=== PATIENT | female | born 1975 | race Caucasian/White ===

== ENCOUNTER 2024-11-08 09:54 | Outpatient (OUT) | payer OTHER, SELFPAY ==
--- OUTSIDE RECORDS SUMMARY | 2024-03-11 07:15 | XMS_ITS | Continuity of Care Document ---
Author Organization [employer] [facility] Address [address] [place] [address] [place] [address] Phone Care Team Providers Care Bill Clerk Name Role Phone Sylvie ALVAREZ, Rafat Unavailable Unavailable Procedures Procedure Date POSTOP FOLLOW-UP VISIT Sleeve Gastrectomy LAP SLEEVE GASTRECTOMY OFFICE/OUTPATIENT VISIT, [facility] PSYCL TST EVAL PHYS/QHP PSYCL/NRPSYC TST PHY/QHP PSYCL/NRPSYC TST PHY/QHP OFFICE/OUTPATIENT VISIT, [facility] Advance Directives Directive Yes / No Effective Date File Name No Information Encounters Encounter Description Practice Location Reason(s) For Visit Diagnoses Date Provider Providers Copied on Encounter [place] [employer] [facility], [address] [place] [address], [id number], [place] tel:[phone] [facility] No Information Sylvie Douglass. [address] [place] [address], [id number], [place]. tel:[phone] Referring Provider: Rafat Winchester, [address] [place] [address], [address]. tel:[phone] [employer] [facility], [address] [place] [address] [place], [id number], [place] tel:[phone] [facility] No Information Parmjit Bill. [address] [place] [address] [address], [place], [place], [id number], [place]. tel:[phone] Referring Provider: Landy Parnell, [address] [facility] [address], [place], [address]. tel:[phone] [place] [employer] [facility], [address] [place] [address] [address], [place], [place], [id number], [place] tel:[phone] [facility] No Information Sylvie Douglass. [address] [facility] [address], [place], [place], [id number], [place]. tel:[phone] Referring Provider: Rafat Winchester, [address] [place] [address] [address] [facility], [place], [address]. tel:[phone] OFFICE/OUTPATI ENT VISIT, [facility] Emb[employer]ded Chat [facility], [address] [place] [address] [address], [place], [place], [id number], [place] tel:[phone] [facility] No Information Sylvie Douglass. [address] [facility] [address], [place], [place], [id number], [place]. tel:[phone] Referring Provider: Rafat Winchester, [address] [place] [address] [address], [place], [address]. tel:[phone] [place] [employer] [facility], [address] [place] [address] [address], [place], [id number], [place] tel:[phone] [facility] No Information Gilberto Keita. [address] [facility] [address], [place], [place], [id number], [place]. tel:[phone] Referring Provider: Neela Macias, [address] [place] [address] [address], [place], [address]. tel:[phone] OFFICE/OUTPATI ENT VISIT, [facility] [employer]ded [facility], [address] [place] [address] [address], [place], [id number], [place] tel:[phone] [facility] No Information Sylvie Douglass. [address] [facility] [address], [place], [place], [id number], . tel:[phone] Referring Provider: Rafat Winchester, [address] [facility] [address], [place], [address]. tel:[phone] Family History Family Member Type Diagnosis Age At Onset No Information Payers Payer name Insurance type Covered green party ID Authorcapricea paulinecarlitos(s) [employer] [place] Medicaid CI [id number] Social History Type Description Quantity Date Captured Comments Sex Female Smoking Status No Information Chief Complaint And Reason For Visit No Information Reason For Referral Reason For Referral No Information History Of Present Illness Encounter Date Complaint History Of Prese nt Illness No Information Functional Status Date Functional Assessmen t No Information Instructions Date Instruction Additional Infor mation No Information Assessments Type Assessment Date No Information Patient Care Teams Name Effective Dates (start - stop) Status Members No Information
--- OUTSIDE RECORDS SUMMARY | 2024-05-03 05:15 | XMS_ITS ---
Author Organization [facility] es Address [address] [place] [address] Care Team Providers Care Nurse Midwife/Clinical Instructor Name Role Phone Tammi Murphy Primary Care Provider [phone] Stevan Vero Santiago Unavailable [phone] REASON FOR VISIT 3 month DO NOT CHANGE TO TELE Encounters Encounter Location Date Provider Diagnosis [facility] [address] [facility] [place] [address] 05/03/2024 Tammi Murphy Plan Of Treatment Next Appt Details Provider Name:Tammi garcía, 11/11/2024 07:30:00 AM, [address], [address], Provider Name:Sergei Feng, 1 03/29/2024 04:30:00 PM, [address], [address], Provider Name:Sergei Feng, 1 04/07/2024 03:30:00 PM, [address] [place], [address], Provider Name:Sergei Feng, 1 04/10/2024 11:15:00 AM, [address], [address], Progress Notes * SHALONDA GREENBERGDOB:[birth year] (49 yo F)Acc No.[id number]:05/03/2024 Behavioral Health Patient: SHALONDA MASON Appointment Provider: C RONNIE WEEMS :1975 A ge:49 Y S ex:Female Date:05/03/2024 Address:[address] [place], [place] [address], [id number] Subjective: * Chief Complaints: * 1 . 3 month DO NOT CHANGE TO TELE. * Medical History: Objective: * Vitals: Assessment: Plan: * Treatment: * Images: * Electronic signature of MAICO Page i on 11/08/2024 at 09:59 AM EDT Sign off status: Pending * Appointment Provider: RONNIE BERG Date: 0 05/03/2024 Generated for Subhash drake/Manda/Colin on: 0 11/08/2024 09:59 AM EDT
--- OUTSIDE RECORDS SUMMARY | 2024-05-28 04:30 | XMS_ITS ---
Author Organization [facility] es Address [address] [place] [address] Care Team Providers Care Behavioral Health Technician Name Role Phone Tammi Murphy Primary Care Provider [phone] Stevan Vero Santiago Unavailable [phone] REASON FOR VISIT r/s from 3-10 Encounters Encounter Location Date Provider Diagnosis [facility] [address] [facility] [place] [address] 05/28/2024 Tammi Murphy Plan Of Treatment Next Appt Details Provider Name:Tammi garcía, 11/11/2024 07:30:00 AM, [address], [address], Provider Name:Sergei Feng, 1 03/29/2024 04:30:00 PM, [address] [place], [address], Provider Name:Sergei Feng, 1 04/07/2024 03:30:00 PM, [address] [place], [address], Provider Name:Sergei Feng, 1 04/10/2024 11:15:00 AM, [address] [place], [address], Progress Notes * SHALONDA GREENBERGDOB:[birth year] (49 yo F)Acc No.[id number]:05/28/2024 Behavioral Health Patient: SHALONDA MASON Appointment Provider: C RONNIE WEEMS :1975 A ge:49 Y S ex:Female Date:05/28/2024 Address:[address] [place], [place] [address], [id number] Subjective: * Chief Complaints: * 1 . R/s from 3-10. * Medical History: Objective: * Vitals: Assessment: Plan: * Treatment: * Images: * Electronic signature of MAICO Page i on 11/08/2024 at 09:59 AM EDT Sign off status: Pending * Appointment Provider: RONNIE BERG Date: 0 05/28/2024 Generated for Subhash drake/Manda/Colin on: 0 11/08/2024 09:59 AM EDT
--- OUTSIDE RECORDS SUMMARY | 2024-11-08 09:59 | XMS_ITS | Clinical Summary ---
Author Organization [facility] Address [address] [place] [address] Phone Care Team Providers Care Linux System Administrator Name Role Phone Unavailable Primary Care Provider Unavailabl e Encounters Date Type Department Care Team Description 10/07/2024 Orders Only [facility] [address] [place] [place] [address] Ruy Padilla DO from Last 3 Months Social History Tobacco Use Types Packs/Day Years Used Date Smoking Tobacco: Never Assessed Comments Unknown Sex and Gender Information Value Date Recorded Sex Assigned at Not on file Legal Sex Female 9:36 AM EST Gender Identity Not on file Sexual Orientation Not on file Plan of Treatment Not on file Procedures Procedure Name Priority Date/Time Associated Diagnosis Comments [facility] UA WITH CULT RFLX Routine 10/07/2024 9:01 AM EDT [facility] CBC W/ AUTO DIFF Routine 10/07/2024 7:09 AM EDT [facility] EGFR Routine 10/07/2024 7:09 AM EDT [facility] H[facility] LIPASE LEVEL Routine 10/07/2024 7:09 AM EDT [facility] HEP FUNC PANEL Routine 10/07/2024 7:09 AM EDT [facility] BMP Routine 10/07/2024 7:09 AM EDT from Last 3 Months Results * (ABNORMAL) [facility] UA WITH CULT RFLX (10/07/2024 9:01 AM EDT) [facility] UA Spec Desc Clean Catch [facility] NON-[facility] HIE UA Color Yellow Yellow [facility] Comment:Microscopic readings are only performed on those samples that meet specific criteria set forth by [facility]. [facility] HIE UA Clarity Clear Clear [facility]IE UA Spec Grav >1.050 1.005 - 1.030 [facility] H[facility] UA pH 6.0 5.0 - 9.0 [facility] HIE UA Protein 1+(A) Negative mg/dL [facility] HIE UA Glucose Negative Negative mg/dL [facility] UA Ketones 2+(A) Negative mg/dL [facility] UA Bili Negative Negative mg/dL [facility] UA Blood Trace(A) Negative [facility] UA Nitrite Negative Negative mg/dL [facility] UA Urobilinogen Negative Negative mg/dL [facility] UA Leuk Est Negative Negative [facility] H[facility] UA WBC 0-5 0 - 5 CD:[id number] [facility] HIE UA RBC 4-20(A) 0 - 3 CD:[id number] 63 [facility] NON- HIE UA Squam Epithelial 3-4 CD:[id number] 63 [facility] UA MUCOUS 3+(A) Negative [facility] Urine 10/07/2024 9 :01 AM EDT us Ruy Padilla DO LAB BLOOD ORDERABLES Final Resu lt [facility] [address] [place] [address], [place] * (ABNORMAL) [facility] CBC w/ Auto Diff (10/07/2024 7:09 AM EDT) [facility] WBC 16.4(H) 4.0 - 11.0 E9/L [facility] H[facility] RBC 5.5 4.3 - 5.9 E12/L [facility] H[facility] HGB 18.0(H) 12.0 - 16.0 gm/dL [facility] H[facility] HCT 50.4(H) 34.0 - 46.0 % [facility] RDW 13.8 10.9 - 14.2 % [facility] H[facility] MCH 32.5 27.0 - 34.0 pg [facility] HIE MCHC 35.7 31.4 - 36.0 gm/dL [facility] H[facility] MCV 90.9 80.0 - 100.0 fL [facility] H[facility] MPV 7.3 6.4 - 10.8 fL [facility] H[facility] PLATELET 331.0 150.0 - 500.0 E9/L [facility] NEUTRO AUTO 95.4(H) 36.0 - 75.0 % [facility] H[facility] LYMPH AUTO 2.4(L) 14.0 - 50.0 % [facility] MONO AUTO 2.0(L) 4.0 - 14.0 % [facility] EOS AUTO 0.0 0.0 - 8.0 % [facility] BASOPHIL AUTO 0.2 0.0 - 2.0 % [facility] NEUTRO ABSOLUTE 15.6(H) 2.0 - 7.5 E9/L [facility] LYMPH ABSOLUTE 0.4(L) 1.0 - 4.0 E9/L [facility] MONO ABSOLUTE 0.3 0.2 - 1.0 E9/L [facility] EOS ABSOLUTE 0.0 0.0 - 0.5 E9/L [facility] BASOPHIL ABSOLUTE 0.0 0.0 - 0.2 E9/L [facility]- Blood 10/07/2024 7 :09 AM EDT us Ruy Padilla DO LAB BLOOD ORDERABLES Final Resu lt Performing Organization Address [facility] Co de Phone Number [facility] [address] [place] [address], [place] * (ABNORMAL) [facility] BMP (10/07/2024 7:09 AM EDT) [facility] GLUCOSE LVL 157 55 - 199 mg/dL [facility] H[facility] BUN 13 5 - 21 mg/dL [facility] H[facility] CREATININE 0.8 0.5 - 1.3 mg/dL [facility] BUN/CREAT RATIO 16 10 - 20 No Units [facility] H[facility] CALCIUM LVL 10.3 8.9 - 11.1 mg/dL [facility] H[facility] SODIUM LVL 135 135 - 145 mmol/L [facility] POTASSIUM LVL 4.3 3.5 - 5.3 mmol/L [facility] HIE CHLORIDE 96(L) 101 - 111 mmol/L [facility] H[facility] CO2 28 21 - 31 mmol/L [facility] AGAP 15 6 - 16 mEq/L [facility]- Blood 10/07/2024 7 :09 AM EDT us Ruy Padilla DO LAB BLOOD ORDERABLES Final Resu lt Performing Organization Address City/[facility]/ZIP Co de Phone Number [facility] [address] [place] [address], [place] * (ABNORMAL) [facility] Lipase Level (10/07/2024 7:09 AM EDT) [facility] LIPASE LVL 10(L) 13 - 58 unit/L [facility]- Blood 10/07/2024 7 :09 AM EDT us Ruy Padilla DO LAB BLOOD ORDERABLES Final Resu lt [facility] [address] [place] [address], [place] * (ABNORMAL) [facility] H[facility] Hep Func Panel (10/07/2024 7:09 AM EDT) [facility] H[facility] ALT 15 6 - 46 Int._Unit/ L [facility] HIE AST 22 5 - 43 Int._Unit/ L [facility] H[facility] ALBUMIN LVL 4.9 3.3 - 5.0 gm/dL [facility] H[facility] GLOBULIN 3.6 1.4 - 4.0 gm/dL [facility] H[facility] A/G RATIO 1.4 1.1 - 2.2 [facility] H[facility] ALK PHOS 93 21 - 98 Int._Unit/ L [facility] BILI DIRECT 0.2 0.0 - 0.4 mg/dL [facility] BILI INDIRECT 1.2(H) 0.1 - 0.9 mg/dL [facility] H[facility] BILI TOTAL 1.4(H) 0.0 - 1.1 mg/dL [facility] H[facility] TOTAL PROTEIN 8.5(H) 6.0 - 7.8 gm/dL [facility]- Blood 10/07/2024 7 :09 AM EDT us Ruy Padilla DO LAB BLOOD ORDERABLES Final Resu lt [facility] [address] [place] [address], [place] * [facility] HIE eGFR (10/07/2024 7:09 AM EDT) [facility] H[facility] EGFR 90 >=59 mL/min/1.7 3 m2 [facility]- Blood 10/07/2024 7 :09 AM EDT us Ruy Padilla DO LAB BLOOD ORDERABLES Final Resu lt [facility] [address] [place] [address], [place] from Last 3 Months
--- OUTSIDE RECORDS SUMMARY | 2024-11-08 09:59 | XMS_ITS | Clinical Summary ---
Author Organization [employer] Address [id number] [address] [place] [address] Care Team Providers Care Crepe Box Tender Name Role Phone No Pcp, No Pcp Primary Care Provider Unavailabl e Allergies Active Allergy Reactions Criticality Noted Date Comments Sulfa (Sulfonamide Antibiotics) 08/2016 Medications PNV NO.95/FERROUS FUM/FOLIC AC ( ORAL) Take by mouth. Active levothyroxine (SYNTHROID) 50 MCG tablet Take 75 mcg by mouth daily. Active citalopram (CeleXA) 20 mg tablet Take 20 mg by mouth daily. Active ferrous gluconate (FERGON) 324 mg tabletIndications :Monochorionic diamniotic twin gestation in first trimester,Elderly multigravida in first trimester,Essenti al hypertension Take 1 tablet (324 mg total) by mouth daily with breakfast. 60 tablet 3 09/05/2016 Active loratadine (CLARITIN) 10 mg tablet Take 10 mg by mouth daily. Active fluticasone-salme terol (ADVAIR) 100-50 mcg/dose DISKUS Inhale 1 puff daily. Active albuterol (PROVENTIL HFA;VENTOLIN HFA) 90 mcg/actuation inhaler Inhale 2 puffs every 6 (six) hours as needed for wheezing. Active Active Problems Problem Noted Date Diagnosed Date care following delivery 06/2016 Hypothyroidism (acquired) 01/28/2017 Chronic hypertension 01/28/2017 Asthma 01/28/2017 Placenta previa 01/27/2017 Placenta previa antepartum in second trimester 0 11/01/2016 History of 11/01/2016 Monochorionic diamniotic twin gestation in secon d trimester 09/05/2016 Elderly multigravida in second trimester 017 Hypertension affecting in second trime ster 09/05/2016 Immunizations No known immunizations Family History Medical History Relation Name Comments Asthma Brother Alcohol abuse Father Arthritis Father Cancer Maternal Grandfather Diabetes Maternal Grandfather Hypertension Maternal Grandfather Asthma Maternal Grandmother Blood Clots Maternal Grandmother Cancer Maternal Grandmother Depression Maternal Grandmother Asthma Mother Blood Clots Mother Diabetes Mother Hypertension Mother Arthritis Paternal Grandmother Cancer Paternal Grandmother Kidney disease Paternal Grandmother Liver disease Paternal Grandmother Blood Clots Sister Relation Name Status Comments Brother Father Maternal Grandfather Maternal Grandmother Mother Paternal Grandfather Paternal Grandmother Sister Social History Tobacco Use Types Packs/Day Years Used Date Smoking Tobacco: Former Alcohol Use Standard Drinks/Week Comments No 0 (1 standard drink = 0.6 oz pur e alcohol) Childcare Answer Date Recorded Childcare Unknown 08/06/2018 Employment Answer Date Recorded Employment Unknown 08/06/2018 Purpose - Life Answer Date Recorded Purpose and direction in life Unknown Comments No Sex and Gender Information Value Date Recorded Sex Assigned at Not on file Legal Sex Female 11:11 AM EDT Gender Identity Not on file Sexual Orientation Not on file Last Filed Vital Signs Vital Sign Reading Time Taken Comments Blood Pressure 122/70 01/31/2017 8:00 AM EST Pulse 88 01/31/2017 8:00 AM EST Temperature 36.9 C (98.4 F) 01/31/2017 8:00 AM EST Respiratory Rate 16 01/31/2017 8:00 AM EST Oxygen Saturation 99% 01/27/2017 2:00 PM EST Inhaled Oxygen Concentration - - Weight 85.6 kg (188 lb 11.4 oz) 11/01/2016 3:30 PM EDT Height 162.6 cm (5' 4 ) 11/01/2016 3:30 PM EDT Body Mass Index 32.39 11/01/2016 3:30 PM EDT Plan of Treatment Health Maintenance Due Date Last Done Comments Depression Screening 1987 Tobacco Screening 1987 Adult BMI Screening 1993 DTaP,Tdap and Td Vaccines (1 - Tdap) 1994 Pap Smear 01/22/1996 Influenza Vaccine 10/25/2024 Medical Devices Not on file Insurance [employer] Advance Directives * Full Code (Latest Code Status on File) Date Activated Date Inactivated Comments 01/27/2017 8:22 AM 01/31/2017 10:10 PM * Full Code Date Activated Date Inactivated Comments 01/27/2017 12:28 AM 01/27/2017 8:22 AM Care Teams Crepe Box Tender Relationship Specialty Start Date End Date No Pcp, [place] [address] PCP - General Family Medicine 09/05/16
--- OUTSIDE RECORDS SUMMARY | 2024-11-08 09:59 | XMS_ITS | Encounter Summary ---
Author Organization [facility] Address [address], [address] [place] [address] Care Team Providers Care Commissioner Of Officials Name Role Phone Veto Edouard DO Primary Care Provider [phone] Reason for Visit * Reason Comments Medication Refill Encounter Details Date Type Department Care Team (Late st Contact Info) Description 10/31/2024 Refill [facility] Specialty/Primary Care [address], [address] [place], [place] [id number] [place], [place] - LICENSED GUIDE [address] [place], [place] [address] Medication Refill Social History Tobacco Use Types Packs/Day Years Used Date Smoking Tobacco: Former Overall Financial Resource Strain (CARDIA) Answe r Date Recorded How hard is it for you to pa y for the very basics like food, housing, medical care, and heating? Not hard at all 06/25/2023 PHQ-2 Answer Date Recorded PHQ-9 Total Score 0 06/25/2023 Hunger Vital Sign Answer Date Recorded Within the past 12 months, y ou worried that your food would run out before you got the money to buy more. Never true 06/25/19 24 Within the past 12 months, t he food you bought just didn't last and you didn't have money to get more. Never true 06/25/2023 PRAPARE - Transportation Answer Date Re corded Lack of Transportation (Medical) Not on file 06/25/2023 In the past 12 months, has l ack of transportation kept you from meetings, work, or from getting things needed for daily living? No 06/25/2023 Housing Stability Vital Sign Answer Rahul e Recorded Unable to Pay for Housing in the Last Year Not o n file 06/25/2023 Number of Places Lived in the Last Year Not on f ile 06/25/2023 In the last 12 months, was t here a time when you did not have a steady place to sleep or slept in a residential (including now)? No 06/25/2023 Food Insecurity Answer Date Recorded Within the past 12 months, y ou worried that your food would run out before you got the money to buy more. 1 06/25/2023 Within the past 12 months, t he food you bought just didn't last and you didn't have money to get more. 1 06/25/2023 Comments No Sex and Gender Information Value Date Recorded Sex Assigned at Not on file Legal Sex Female 11:57 AM EDT Gender Identity Not on file Sexual Orientation Not on file documented as of this encounter Plan of Treatment Not on file documented as of this encounter Visit Diagnoses Not on filedocumented in this encounter Care Teams Commissioner Of Officials Relationship Specialty Start Date End Date Veto Edouard DO PCP - General Family Medicine 09/17/17 documented as of this encounter
--- OUTSIDE RECORDS SUMMARY | 2024-11-08 09:59 | XMS_ITS | Encounter Summary ---
Author Organization [facility] Address [address] [place] [address] Care Team Providers Care Radiology Manager Name Role Phone Unavailable Primary Care Provider Unavailabl e Encounter Details Date Type Department Care Team (Late st Contact Info) Description 07/17/2022 Clinisync Result Encounter [facility] Juancarlos Lopez, DO [address] [place], [place] [id number] Social History Tobacco Use Types Packs/Day Years Used Date Smoking Tobacco: Never Assessed Comments Unknown Sex and Gender Information Value Date Recorded Sex Assigned at Not on file Legal Sex Female 7:14 PM EDT Gender Identity Not on file Sexual Orientation Not on file documented as of this encounter Plan of Treatment Not on file documented as of this encounter Procedures Procedure Name Priority Date/Time Associated Diagnosis Comments MG MAMM SCREEN 3D CIELO CAD 07/17/2022 12:23 PM EDT documented in this encounter Results * MG MAMM SCREEN 3D CIELO CAD (07/17/2022 12:23 PM EDT) Anatomical Region Laterality Modality Other 07/17/2022 12:2 3 PM EDT Narrative 07/17/2022 12:23 PM EDT Patient: SHALONDA FERRARA. Exam Date: 07/17/2022 : 1975 Gender:F Ordering : DR JUANCARLOS SOLIMAN . Admission #: [id number] Family : Order #: [id number] CLICK HERE TO VIEW EXAM RADIOLOGY REPORT PROCEDURE: MAMMOGRAM SCREENING 3D BILATERAL CAD COMPARISON: MG MAMM CIELO DIAG W CAD, 06/29/2019. MG MAMM CIELO DIAG W CAD, 11/25/2018. MG MAMM SCREEN CIELO W CAD, 06/02/2018. INDICATIONS: Screening mammography Calculator Name NCI Breast Cancer Risk Assessment Tool 5 Year Breast Cancer Risk 1.00% Lifetime Breast Cancer Risk 10.30% Personal Breast Cancer No Personal Ovarian Cancer No Treatments None Family Cancers Grandfather-maternal with pancreatic cancer at age 72; Father with colon cancer at age 65; Grandmother-maternal with skin cancer at age 80; Grandmother-paternal with renal cancer at age 77; Aunt-paternal with renal cancer at age 58. LOCATION: [facility] BREAST COMPOSITION: Heterogeneously dense,which may obscure small masses. FINDINGS: DIAGNOSTIC CATEGORY 2--BENIGN FINDING: RIGHT BREAST: No significant suspicious finding. Scattered benign-appearing calcifications are present. No significant change has occurred. LEFT BREAST: No significant suspicious finding. Scattered benign-appearing calcifications are present. Scattered benign-appearing lymph nodes are present. No significant change has occurred. RECOMMENDATIONS: ROUTINE MAMMOGRAM AND CLINICAL EVALUATION IN 12 MONTHS. PLEASE NOTE: A NORMAL MAMMOGRAM DOES NOT EXCLUDE THE POSSIBILITY OF BREAST CANCER. A CLINICALLY SUSPICIOUS PALPABLE LUMP SHOULD BE BIOPSIED. Dictated by: Angelo Latham M.D. on 07/17/2022 at 15:06 Approved by: Angelo Latham M.D. on 07/17/2022 at 15:09 Procedure Note Radiology, Radiologist, MD - 07/17/2022 Patient: SHALONDA FERRARA Exam Date: 07/17/2022 : 1975 Gender:F Ordering : DR JUANCARLOS SOLIMAN . Admission #: [id number] Family : Order #: [id number] CLICK HERE TO VIEW EXAM RADIOLOGY REPORT PROCEDURE: MAMMOGRAM SCREENING 3D BILATERAL CAD COMPARISON: MG MAMM CIELO DIAG W CAD, 06/29/2019. MG MAMM CIELO DIAG WCAD, 11/25/2018. MG MAMM SCREEN CIELO W CAD, 06/02/2018. INDICATIONS: Screening mammography Calculator Name NCI Breast Cancer Risk Assessment Tool 5 Year Breast Cancer Risk 1.00% Lifetime Breast Cancer Risk 10.30% Personal Breast Cancer No Personal Ovarian Cancer No Treatments None Family Cancers Grandfather-maternal with pancreatic cancer at age 72; Father with colon cancer at age 65; Grandmother-maternal with skin cancerat age 80; Grandmother-paternal with renal cancer at age 77; Aunt-paternalwith renal cancer at age 58. LOCATION: [facility] BREAST COMPOSITION: Heterogeneously dense,which may obscure smallmasses. FINDINGS: DIAGNOSTIC CATEGORY 2--BENIGN FINDING: RIGHT BREAST: No significant suspicious finding. Scatteredbenign-appearing calcifications are present. No significant change has occurred. LEFT BREAST: No significant suspicious finding. Scatteredbenign-appearing calcifications are present. Scattered benign-appearing lymph nodes are present. No significant change has occurred. RECOMMENDATIONS: ROUTINE MAMMOGRAM AND CLINICAL EVALUATION IN 12 MONTHS. PLEASE NOTE: A NORMAL MAMMOGRAM DOES NOT EXCLUDE THE POSSIBILITY OFBREAST CANCER. A CLINICALLY SUSPICIOUS PALPABLE LUMP SHOULD BE BIOPSIED. Dictated by: Angelo Latham M.D. on 07/17/2022 at 15:06 Approved by: Angelo Latham M.D. on 07/17/2022 at 15:09 Result [facility] Juancarlos Soliman DO [facility] Final Result documented in this encounter Visit Diagnoses Not on filedocumented in this encounter
--- OUTSIDE RECORDS SUMMARY | 2024-11-08 09:59 | XMS_ITS | Clinical Summary ---
Author Organization [facility] Address [address] [place] [address] Care Team Providers Care Contracts Director Name Role Phone Unavailable Primary Care Provider Unavailabl e Allergies Active Allergy Reactions Criticality Noted Date Comments Gluten Meal 12/09/2023 Sulfa Antibiotics Hives 08/30/2016 Other Reaction(s): hives Medications semaglutide (Ozempic, 0.25 or 0.5 MG/DOSE,) 2 MG/1.5ML solution pen-injectorInd ications:Insuli n resistance Inject 0.25 mg under the skin 1 (one) time per week for 28 days. Contact office for increased dosage before current script is gone. 1 each 3 Active Family History Medical History Relation Name Comments Osteoarthritis Father Relation Name Status Comments Father Alive Maternal Grandfather Maternal Grandmother Alive Mother Alive Paternal Grandfather Paternal Grandmother Social History Tobacco Use Types Packs/Day Years Used Date Smoking Tobacco: Never Assessed Comments Unknown Sex and Gender Information Value Date Recorded Sex Assigned at Not on file Legal Sex Female 7:14 PM EDT Gender Identity Not on file Sexual Orientation Not on file Last Filed Vital Signs Vital Sign Reading Time Taken Comments Blood Pressure 120/80 12/09/2023 9:25 AM EDT Pulse - - Temperature - - Respiratory Rate - - Oxygen Saturation - - Inhaled Oxygen Concentration - - Weight 110 kg (242 lb 12.8 oz) 12/09/2023 9:25 A M EDT Height 162.6 cm (5' 4 ) 07/08/2022 12:00 PM EDT Body Mass Index 41.68 07/08/2022 12:00 PM EDT Plan of Treatment Health Maintenance Due Date Last Done Comments CT Colonography 1975 Colonoscopy 1975 Colorectal Cancer Screening 1975 FIT-DNA 1975 FIT 1975 FOBT 1975 Sigmoidoscopy 1975 Mammogram 07/18/2023 07/17/2022 Influenza Vaccine (#1) 2024 Cervical Cancer Screening 07/15/2026 HPV/Cotest 07/15/2026 Pap Smear 07/15/2026 07/15/2021 Procedures Procedure Name Priority Date/Time Associated Diagnosis Comments MG MAMM SCREEN 3D CIELO CAD 07/17/2022 12:23 PM EDT PAP SMEAR Routine 07/15/2021 12:00 AM EDT from Last 3 Months or Most Recently Relevant to Health Maintenance Results * MG MAMM SCREEN 3D CIELO CAD (07/17/2022 12:23 PM EDT) Anatomical Region Laterality Modality Other 07/17/2022 12:2 3 PM EDT Narrative 07/17/2022 12:23 PM EDT Patient: SHALONDA FERRARA Exam Date: 07/17/2022 : 1975 Gender:F Ordering : DR JUANCARLOS SANTOS . Admission #: [id number] Family : Order #: [id number] CLICK HERE TO VIEW EXAM RADIOLOGY REPORT [...] renal cancer at age 58. LOCATION: [facility] BREAST COMPOSITION: Heterogeneously dense,which may obscure [...] 07/17/2022 at 15:09 Procedure Note Radiology, Radiologist, - 07/17/2022 Patient: SHALONDA FERRARA Exam Date: 07/17/2022 : 1975 Gender:F Ordering : DR JUANCARLOS SANTOS . Admission #: [id number] Family : Order #: [id number] CLICK HERE TO VIEW EXAM RADIOLOGY REPORT [...] renal cancer at age 58. LOCATION: [facility] BREAST COMPOSITION: Heterogeneously dense,which may obscure [...] Angelo Latham M.D. on 07/17/2022 at 15:09 Juancarlos Jourdan DO [facility] Final Result * Pap Smear (07/15/2021 12:00 AM EDT) Swab Cervical swab / Unknown Historical Provider MD LAB CYTOLOGY ORDERABLES F inal Result EXTERNAL LAB from Last 3 Months or Most Recently Relevant to Health Maintenance Insurance [employer]
--- OUTSIDE RECORDS SUMMARY | 2024-11-08 09:59 | XMS_ITS | Encounter Summary ---
Author Organization [facility] Address [address] [place] [address], [address] [place] [address] Care Team Providers Care Primary Care Pediatrician Name Role Phone Veto Edouard DO Primary Care Provider [phone] Encounter Details Date Type Department Care Team (Late st Contact Info) Description 06/24/2018 Orders Only [address] [place] [address] Provider, [place], Social History Tobacco Use Types Packs/Day Years Used Date Smoking Tobacco: Former Comments No Sex and Gender Information Value Date Recorded Sex Assigned at Not on file Legal Sex Female 11:57 AM EDT Gender Identity Not on file Sexual Orientation Not on file documented as of this encounter Plan of Treatment Not on file documented as of this encounter Procedures Procedure Name Priority Date/Time Associated Diagnosis Comments LAB SCANNED REPORT Routine 01/30/2018 documented in this encounter Results * LAB SCANNED REPORT (01/30/2018) Historical Provider HEMATOLOGY ORDERABLES Fin al Result documented in this encounter Visit Diagnoses Not on filedocumented in this encounter Care Teams Primary Care Pediatrician Relationship Specialty Start Date End Date Veto Edouard DO PCP - General Family Medicine 09/17/17 documented as of this encounter
--- OUTSIDE RECORDS SUMMARY | 2024-11-08 09:59 | XMS_ITS | Patient Health Record ---
Author Organization [employer] [facility] Polle[facility]where es Address [address] [place] [address] Care Team Providers Care Rn Camp Name Role Phone Tammi Murphy Primary Care Provider [phone] Stevan Vero Santiago Unavailable [phone] Dr. Sergei Feng Unavailable [phone] Allergies Allergen (clinical drug ingredient) Drug/Non Drug Allergy documented on EMR Reaction Allergy Type Onset Date Status Substance with sulfonamide structure and antibacterial mechanism of action (substance) Sulfa Antibiotics hives Drug Allergy Active Reason For Referral No Information Medications Medication SIG (Take, Route, Frequency, Duration) Notes Start Date End Date Status Strattera 18 MG 1 capsule in the morning Orally Once a day; Duration: 30 day(s) 08/22/2022 Unknown CeleXA 20 MG 1 tablet Orally Once a day; Duration: 30 days Unknown Topiramate 100 MG 1 tablet Orally Once a day Unknown ARIPiprazole 10 MG Take 1 tablet by renny once daily Orally Once a day; Duration: 30 days Unknown busPIRone HCl 5 MG 1 tablet Orally Twic e a day; Duration: 30 days 08/08/2022 12/09/2024 Unknown Levothyroxine Sodium 137 MCG 1 tablet in the morning on an empty stomach Orally Once a day Unknown Ibuprofen 800 MG 1 tablet with food o r milk as needed Orally Three times a day 11/05/2022 Unknown LaMICtal 100 MG 1 tablet Orally Once a day; Duration: 30 days Unknown hydrOXYzine HCl 25 MG 1-2 tablets Orally every 6 hours as needed for anxiety 06/20/2021 Unknown busPIRone HCl 5 MG 1 tablet Orally once a day; Duration: 30 days 07/11/2021 Unknown CeleXA 40 MG 1 tablet Orally Once a day; Duration: 30 days Unknown ARIPiprazole 2 MG 1 tablet Orally Once a day in the evening; Duration: 30 day(s) 06/20/2021 Unknown Tylenol 325 MG 1 tablet as needed Orally every 6 hrs Unknown Citalopram Hydrobromide 40 MG 1 tablet Orally Once a day Unknown Abilify 10 MG 1 tablet Orally Once a day; Duration: 30 days 07/03/2021 Unknown LaMICtal 25 MG 2 tablets Orally armand ly; Duration: 30 days 08/06/2021 Unknown Social History Tobacco Use: Social History Observation Description Date Details (start date - stop date) Former Smoker NA - NA Depression Screening (PHQ-9): Question Answer Notes Little interest or pleasure in doing things Nearly every day Feeling down, depressed, or hopeless Nearly ever y day Trouble falling or staying a sleep, or sleeping too much Nearly every day Feeling tired or having little energy Nearly daniela ry day Poor appetite or overeating Nearly every day Feeling bad about yourself-o r that you are a failure or have let yourself or your family down Nearly every day Trouble concentrating on thi ngs, such as reading the newspaper or watching television Nearly every day Moving or speaking so slowly that other people could have noticed. Or the opposite being so fidgety or restless that you have been moving around a lot more than usual Nearly every day Thoughts that you would be b ranjan off , or of hurting yourself in some way Several days(Consider Suicide Assessment Risk) Total Score 25 Intepretation Severe Depression AUDIT-C (Standard) Question Answer Notes Did you have a drink containing alcohol in the p ast year? No Points 0 Interpretation Negative Tobacco Control (Standard) Question Answer Notes Tobacco use: Former smoker Problems Problem Type SNOMED Code ICD Code Onset Dates Problem Status W/U Status Risk Notes Problem Anxiety (76060207) Anxiety (F41.9) Active confirmed Problem Bipolar II disorder (77819678) Bipolar 2 disorder, major depressive episode (F31.81) Active confirmed Problem Persistent depressive disorder (6649819304) Persistent depressive disorder (F34.1) Active confirmed with intermittent major depressive episodes and anxious distress Vital Signs Heart Rate 68 /min 05/19/2024 Temperature 97.3 degrees Fahrenheit 05/19/2024 Blood pressure diastolic 86 mm Hg 05/19/2024 Oximetry 95 % 05/19/2024 Height 64 in 05/19/2024 Blood pressure systolic 123 mm Hg 05/19/2024 Weight 205.8 lbs 05/19/2024 BMI 35.32 kg/m2 05/19/2024 Encounters Encounter Location Date Provider Diagnosis [facility] [address] [place] [address] 09/20/[address] [place] [address] 09/20/2024 Sergei Ping Dental caries on pit and fissure surface penetrating into dentin K02.52 ; Encounter for dental examination and cleaning with abnormal findings Z01.21 ; Disturbances in tooth eruption K00.6 and Other dental procedure status Z98.[address] [place] [address] 05/19/2024 Tammi Slingwine Persistent depressiv e disorder F34.1 ; Anxiety F41.9 and Bipolar 2 disorder, major depressive episode F31.[address] [place] [address] 02/05/2024 Tammi Slingwine Persistent depressiv e disorder F34.1 ; Anxiety F41.9 and Bipolar 2 disorder, major depressive episode F31.[address] [address] 08/11/2024 Tammi Slingwine Persistent depressiv e disorder F34.1 ; Anxiety F41.9 and Bipolar 2 disorder, major depressive episode F31.81 Assessments Encounter Date Diagnosis (ICD Code) Assessment Notes Treatment Notes Treatment Clinical Notes Section Notes 02/05/2024 Persistent depressive disorder (ICD-10 - F34.1) with intermittent major depressive episodes and anxious distress 05/19/2024 Persistent depressive disorder (ICD-10 - F34.1) with intermittent major depressive episodes and anxious distress 08/11/2024 Persistent depressive disorder (ICD-10 - F34.1) with intermittent major depressive episodes and anxious distress 09/20/2024 Dental caries on pit and fissure surface penetrating into dentin (ICD-10 - K02.52) 09/20/2024 Encounter for dental examination and cleaning with abnormal findings (ICD-10 - Z01.21) 08/11/2024 Anxiety (ICD-10 - F41.9) Recommended treatment is: _ FDA approved medication for this age group include Selective Serotonin Reuptake Inhibitors (SSRI) and Selective Norepinephrine Reuptake Inhibitors (SNRI). . Selective serotonin reuptake inhibitors? can cause nausea, headache, upset stomach, diarrhea, constipation, anxiety, irritability, and sexual dysfunction. . Please monitor for worsening of symptoms, especially suicidal ideations or morbid thoughts, and call office and or go to the emergency department immediately. Pt does not endorse exhibiting symptoms aligning with nelsy. . The patient verbalizes understanding with all questions answered thoroughly and is in agreement with treatment plan. . Continue current treatment plan Patient/Guardian will call sooner if symptoms worsen. Patient understands to go to ER if needed if symptoms become severe. Crisis Intervention plan was discussed and agreed upon. Patient/Guardian will call 911 in case of emergency. Emergency contact information was provided to the patient/guardian. Buspar is a medication used for anxiety. The medication can cause dizziness, sedation, and restless. Please contact the office if you experience these symptoms. The medication typically takes 2-4 weeks to achieve efficacy. Made aware to contact office if symptoms worsen. . Informed consent obtained: YES, we discussed the diagnosis/diagnose s, the treatment options, treatment(s) recommended vs. no treatment. We discussed risks and benefits of treatment options, treatment recommendations vs. no treatment. . . Pt is to continue current treatment plan Has good tolerability and compliance with medication Call for problems All questions and concerns discussed . 05/19/2024 Anxiety (ICD-10 - F41.9) Recommended treatment is: _ FDA approved medication for this age group include Selective Serotonin Reuptake Inhibitors (SSRI) and Selective Norepinephrine Reuptake Inhibitors (SNRI). . Selective serotonin reuptake inhibitors? can cause nausea, headache, upset stomach, diarrhea, constipation, anxiety, irritability, and sexual dysfunction. Buspar is a medication used for anxiety. The medication can cause dizziness, sedation, and restless. Please contact the office if you experience these symptoms. The medication typically takes 2-4 weeks to achieve efficacy. Made aware to contact office if symptoms worsen. . Please monitor for worsening of symptoms, especially suicidal ideations or morbid thoughts, and call office and or go to the emergency department immediately. Pt does not endorse exhibiting symptoms aligning with nelsy. . The patient verbalizes understanding with all questions answered thoroughly and is in agreement with treatment plan. . Continue current treatment plan Patient/Guardian will call sooner if symptoms worsen. Patient understands to go to ER if needed if symptoms become severe. Crisis Intervention plan was discussed and agreed upon. Patient/Guardian will call 911 in case of emergency. Emergency contact information was provided to the patient/guardian. 02/05/2024 Anxiety (ICD-10 - F41.9) 02/05/2024 Bipolar 2 disorder, major depressive episode (ICD-10 - F31.81) 05/19/2024 Bipolar 2 disorder, major depressive episode (ICD-10 - F31.81) Patient will continue current treatment plan. Patient verbally acknowledges understanding instructions including medication education and has no further questions comments or concerns at this time. . . Recommended treatment for Bipolar disorder includes FDA approved and OFF label medications: second generation antipsychotics and mood stabilizers. Discussed life threatening side effect of Lamotrigine. Pt is to monitor for new skin rashes or sensation of a sunburn or itchiness or redness, mouth sores or sores in mucus membranes, and call provider immediately and or go to ER, and stop the medication. Second generation antipsychotic medications can cause headache, drowsiness, agitation, dizziness, nausea, or extrapyramidal symptoms such as tremors, muscle spasms, slowness of movement or jerking of muscles. . Stable . The patient verbalizes understanding with all questions answered thoroughly and is in agreement with treatment plan. . Continue current treatment. Call for problems . GOALS: . Maintain medication regimen . _Improve mood stability . _Improve anxiety control . _Improve social and interpersonal functioning . Patient/Guardian will call sooner if symptoms worsen. Patient understands to go to ER if needed if symptoms become severe. . Crisis Intervention plan was discussed and agreed upon. Patient/Guardian will call 911 in case of emergency. Emergency contact information was provided to the patient/guardian. . Pharmacological management: . Alternative medication plans were discussed with the patient/guardian. All relevant side effects and potential adverse effects were discussed with the patient/guardian. Standard cautions and potential benefits were discussed. Patient/Guardian consented to the start/continuation of the treatment. 08/11/2024 Bipolar 2 disorder, major depressive episode (ICD-10 - F31.81) Patient will continue current treatment plan. Patient verbally acknowledges understanding instructions including medication education and has no further questions comments or concerns at this time. . . Recommended treatment for Bipolar disorder includes FDA approved and OFF label medications: second generation antipsychotics and mood stabilizers. Discussed life threatening side effect of Lamotrigine. Pt is to monitor for new skin rashes or sensation of a sunburn or itchiness or redness, mouth sores or sores in mucus membranes, and call provider immediately and or go to ER, and stop the medication. Second generation antipsychotic medications can cause headache, drowsiness, agitation, dizziness, nausea, or extrapyramidal symptoms such as tremors, muscle spasms, slowness of movement or jerking of muscles. . Stable . The patient verbalizes understanding with all questions answered thoroughly and is in agreement with treatment plan. . Continue current treatment. Call for problems . GOALS: . Maintain medication regimen . _Improve mood stability . _Improve anxiety control . _Improve social and interpersonal functioning . Patient/Guardian will call sooner if symptoms worsen. Patient understands to go to ER if needed if symptoms become severe. . Crisis Intervention plan was discussed and agreed upon. Patient/Guardian will call 911 in case of emergency. Emergency contact information was provided to the patient/guardian. . Pharmacological management: . Alternative medication plans were discussed with the patient/guardian. All relevant side effects and potential adverse effects were discussed with the patient/guardian. Standard cautions and potential benefits were discussed. Patient/Guardian consented to the start/continuation of the treatment. 09/20/2024 Disturbances in tooth eruption (ICD-10 - K00.6) 09/20/2024 Other dental procedure status (ICD-10 - Z98.818) 02/05/2024 Other follow up in 3 months Buspar is a medication used for anxiety. The medication can cause dizziness, sedation, and restless. Please contact the office if you experience these symptoms. The medication typically takes 2-4 weeks to achieve efficacy. Made aware to contact office if symptoms worsen. Lamictal: Patient educated on dosing schedule of medication. Made aware to make prescriber aware of any unexplainable rash or flu-like symptoms. If outside of office hours patient should report to the ER. Made aware to contact the office with any questions or concerns. Provided crisis hotline number. Patient states has good support system. Will call office or report to the ER with suicidal ideations. Patient educated on new antipsychotic dosing schedule and side effects. Made aware to not abruptly stop the medication. Made aware to notify the office or go to the ER if experience any abnormal repetitive movements. Also, made aware to notify office of any nausea, vomiting, or dizziness. Made aware to not stop medication abruptly. This is an FDA approved use for this medication. Discussed with patient crisis plan. Provided crisis hotline number. States has good support system. Made aware to contact office if has an increase in suicidal thoughts. If outside of office hours, patient to go to the ER. Patient will call the office with any questions or concerns. Educated on new antidepressant. Made aware of Black Box Warning that it can increase suicidal thoughts, especially in minors. If this happens go to the ER. Make the office aware or go to the ER, if you experience seizures or an increase in activity and irritability. Made aware to not abruptly stop medication. Medication can cause headache and nausea. . Denies suicidal or homicidal ideation or plan. No morbid thoughts. Interpersonal issues discussed. Support provided Insight oriented/ Behavior modifying/ Supportive therapy . Patient educated about the importance of adequate sleep to your mental health. The bedroom should be kept dark to promote restful sleep. The patient should not use their phone or watch TV while in bed, these behaviors can be stimulating and keep the patient awake. 05/19/2024 Other Body Mass Index : Care Instructions material was published, Body Mass Index: Care Instructions material was printed Plan Of Treatment Next Appt Details Provider Name:Tammi garcía, 11/11/2024 07:30:00 AM, [address] [place], [address], Provider Name:Sergei Feng, 1 03/29/2024 04:30:00 PM, [address] [place], [address], Provider Name:Sergei Feng, 1 04/07/2024 03:30:00 PM, [address] [place], [address], Provider Name:Sergei Feng, 1 04/10/2024 11:15:00 AM, [address] [facility] [place], [address], Insurance Providers Payer Name Payer Address Payer Phone Subscriber Number Group Number Insured Name Patient Relationship to Insured Coverage Start Date Coverage End Date [employer] [place] [address] [place] [phone] [id number] SHALONDA GREENBERG Self - patient is the insured 3 [employer] W[employer] [address] [place] [address] [id number] SHALONDA GREENBERG Self - patient is the insured 3 z[employer]-termed [address] [place] [address] [id number] SHALONDA GREENBERG Self - patient is the insured 2 3 [place] after [employer]-ter[employer] 22 [address] [place] [address] [id number] SHALONDA GREENBERG Self - patient is the insured 2 3 Dental [employer] [place] [address] [place] [address] [id number] SHALONDA GREENBERG Self - patient is the insured 3 Dental Wrap [employer] [address] [place] [address] [id number] SHALONDA GREENBERG Self - patient is the insured 3 Medical (General) History Medical History History ICD Code HYPOTHYROIDISM LUPUS SABINA DEPRESSION ASTHMA Surgical History Surgery Date(Month/Year) OVARY AND FALLOPIAN TUBEREMOVED 08/2011 CSECTION Hospitalization History Reason Date(Month/Year) laproscopic 02/03/2024
--- OUTSIDE RECORDS SUMMARY | 2024-11-08 09:59 | XMS_ITS | Encounter Summary ---
[facility] Address [address] [place] [address], [address] [place] [address] Care Team Providers Care Nurses' Association Counselor Name Role Phone Veto Edouard DO Primary Care Provider [phone] Reason for Visit * Reason Onset Date Comments Medication Refill 06/08/2019 Encounter Details Date Type Department Care Team (Late st Contact Info) Description 06/08/2019 Telephone [facility] Pre-Services Pedro Dove MD [address] [place] [address] [address] [place] [address] Medication Refill Social History Tobacco Use Types [...] on filedocumented in this encounter Care Teams Nurses' Association Counselor Relationship Specialty Start Date End Date Veto Edouard DO PCP - General Family Medicine 09/17/17 documented as of this encounter
--- OUTSIDE RECORDS SUMMARY | 2024-11-08 09:59 | XMS_ITS | Encounter Summary ---
Author Organization [facility] Address [address] [place] [address] Care Team Providers Care Engineering Intern Name Role Phone Unavailable Primary Care Provider Unavailabl e Encounter Details Date Type Department Care Team (Late st Contact Info) Description 08/12/2022 [facility] [address] [place] [address] Te Soliman DO [address] [place], [place] [id number] Social History Tobacco Use Types Packs/Day Years [...]
--- OUTSIDE RECORDS SUMMARY | 2024-11-08 09:59 | XMS_ITS | Encounter Summary ---
Author Organization [facility] Address [address] [place] [address] Care Team Providers Care Cloth Stock Sorter Name Role Phone Unavailable Primary Care Provider Unavailabl e Encounter Details Date Type Department Care Team (Late st Contact Info) Description 12/22/2023 [facility] [address] [place] [address] Te Soliman DO [address] [place], [place] [id number] Social History Tobacco Use Types Packs/Day Years [...]
--- OUTSIDE RECORDS SUMMARY | 2024-11-08 09:59 | XMS_ITS | Encounter Summary ---
Author Organization [facility] Address [address] [place] [address] Care Team Providers Care Viscosity Tester Name Role Phone Unavailable Primary Care Provider Unavailabl e Encounter Details Date Type Department Care Team (Late st Contact Info) Description 08/15/2022 [facility] [address] [place] [address] Te Soliman DO [address] [place], [place] [id number] Social History Tobacco Use Types Packs/Day Years [...]
--- OUTSIDE RECORDS SUMMARY | 2024-11-08 09:59 | XMS_ITS | Encounter Summary ---
Author Organization [facility] Address [address], [address] [place] [address] Care Team Providers Care Fire Control Mechanic Name Role Phone Veto Edouard DO Primary Care Provider [phone] Encounter Details Date Type Department Care Team (Late st Contact Info) Description 10/24/2024 Orders Only [facility] Specialty/Primary Care [address], [address] [place], [place] [id number] Stuart Meade, CORPORATE QUALITY MANAGER - LINE CONSTRUCTION SUPERVISOR [address] [place], [place] [id number] Social History Tobacco Use Types Packs/Day Years [...] place to sleep or slept in a retirement (including now)? No 06/25/2023 Food Insecurity Answer [...] on filedocumented in this encounter Care Teams Fire Control Mechanic Relationship Specialty Start Date End Date Veto Edouard DO PCP - General Family Medicine 09/17/17 documented as of this encounter
--- OUTSIDE RECORDS SUMMARY | 2024-11-08 09:59 | XMS_ITS | Clinical Summary ---
Author Organization [facility] Address [address] [place], [place] [address] Care Team Providers Care Home Appliance Installer Name Role Phone Javan Veto Lynn DO Primary Care Provider [phone] Allergies Active Allergy Reactions Criticality Noted Date Comments Sulfa (Sulfonamide Antibiotics) Hives 05/2019 Medications citalopram (CELEXA) 20 mg tablet Take 20 mg by mouth once daily. Active ALBUTEROL INHALATION Inhale as instructed. Active budesonide-form oterol (SYMBICORT) 160-4.5 mcg/actuation inhaler Inhale 2 Puffs as instructed once daily. Active topiramate (TOPAMAX) 100 mg tablet Take 100 mg by mouth once daily. 1 Active ARIPiprazole (ABILIFY) 10 mg tablet Take 10 mg by mouth once daily. 3 Active levothyroxine (SYNTHROID) 175 mcg tablet Take 1 tablet by mouth once daily. 90 tablet 3 3 Active Active Problems Problem Noted Date Diagnosed Date Chronic hip pain, bilateral 06/28/2019 Chronic pain of both knees 06/28/2019 Chronic pain of both feet 06/28/2019 Bilateral hand pain 06/28/2019 Numbness and tingling of right arm 06/28/2019 Vitamin D deficiency 06/28/2019 Thyroid disease 06/28/2019 Secondary osteoarthritis of multiple sites 06/27 Chronic fatigue 06/28/2019 Swelling of hand joint, right 06/28/2019 Family History Medical History Relation Comments Hypothyroidism Maternal Grandmother Hypothyroidism Mother Relation Status Comments Maternal Grandmother Mother Social History Tobacco Use Types Packs/Day Years Used Date Smoking Tobacco: Former Smokeless Tobacco: Never Tobacco Cessation:Counseling Given: Not Answered Area Deprivation Index Answer Date Steven rded National Score (1-100), lower number is lower ri sk 62 08/21/2022 State Score (1-10), lower number is lower risk 4 08/21/2022 Data from: https://www.neighborhoodatlas.medicine.[facility]/. Last address used for calculation [address] 08/21/2022 Comments No Sex and Gender Information Value Date Recorded Sex Assigned at Not on file Legal Sex Female 7:47 AM EDT Gender Identity Not on file Sexual Orientation Not on file Last Filed Vital Signs Vital Sign Reading Time Taken Comments Blood Pressure 141/88 08/21/2022 12:44 PM EDT Pulse 71 08/21/2022 12:44 PM EDT Temperature 36.8 C (98.2 F) 03/15/2021 12:13 PM EST Respiratory Rate 12 12/11/2020 1:37 PM EDT Oxygen Saturation 98% 03/15/2021 12:13 PM EST Inhaled Oxygen Concentration - - Weight 99.3 kg (219 lb) 08/21/2022 12:44 PM EDT Height 162.6 cm (5' 4 ) 03/15/2021 12:13 PM EST Body Mass Index 37.59 03/15/2021 12:13 PM EST Plan of Treatment Health Maintenance Due Date Last Done Comments Anxiety Screening 1993 Depression Screening 1993 HIV Screening 1993 Hepatitis C Screening 1993 DTaP,Tdap,Td Vaccine (1 - Tdap) 1994 Hepatitis B Vaccine (1 of 3 - 19+ 3-dose series) 1994 Cervical Cancer Screening 01/22/[address] Colonography 01/22/2020 Cologuard (FIT-DNA) 01/22/2020 Colonoscopy 01/22/2020 Colorectal Cancer Screening 01/22/2020 Fecal Occult Blood 01/22/2020 Lipid Screening 01/22/2020 Sigmoidoscopy 01/22/2020 Diabetes Screening 10/09/2020 10/09/2017, 10/09/2017 Influenza Vaccine (#1) 2024 Insurance [facility] MEDICAID Care Teams Home Appliance Installer Relationship Specialty Start Date End Date Veto Edouard DO PCP - General Family Medicine 02/24/15
--- NOTE | 2024-11-08 10:01 | MM_ITS ---
Patient Name: SHALONDA GREENBERG MR#: [id number] : 1975 Exam Date: 11/08/2024 Ordering Doctor: STACEY JOYNER RADIOLOGY REPORT PROCEDURE: MM TOMOSYNTHESIS SCREENING BI COMPARISON: MG MAMM SCREEN 3D CIELO CAD, 07/17/2022. MG MAMM CIELO DIAG W CAD, 06/29/2019. MG MAMM CIELO DIAG W CAD, 11/25/2018. MG MAMM SCREEN CIELO W CAD, 06/02/2018. INDICATIONS: Screening Calculator Name NCI Breast Cancer Risk Assessment Tool 5 Year Breast Cancer Risk 1.00% Lifetime Breast Cancer Risk 10.00% Personal Breast Cancer No Personal Ovarian Cancer No Treatments None Family Cancers Grandfather-maternal with pancreatic cancer at age 72; Father with colon cancer at age 65; Grandmother-maternal with skin cancer at age 80; Grandmother-paternal with renal cancer at age 77; Aunt-paternal with renal cancer at age 58. LOCATION: [facility] BREAST COMPOSITION: The breasts are heterogeneously dense, which may obscure small masses. FINDINGS: RIGHT BREAST: No significant suspicious finding. LEFT BREAST: No significant suspicious finding. DIAGNOSTIC CATEGORY 1--NEGATIVE. RECOMMENDATIONS: ROUTINE MAMMOGRAM AND CLINICAL EVALUATION IN 12 MONTHS. Dictated by: Cy Handley DO on 11/08/2024 at 12:40 Approved by: Cy Handley DO on 11/08/2024 at 12:42
== END 2024-11-08 09:55 | disposition home or self-care (01) ==
LOC: MAMMO 09:57
PROVIDERS: PCP Nurse Practitioner Family; Visit Provider Nurse Practitioner Family
DX: Z12.31 Encounter for screening mammogram for malignant neoplasm of breast (principal); Z80.0 Family history of malignant neoplasm of digestive organs; Z80.51 Family history of malignant neoplasm of kidney; Z80.8 Family history of malignant neoplasm of other organs or systems
CPT/HCPCS: 77063; 77067